=== PATIENT | female | born 1970 | race Caucasian/White ===

== ENCOUNTER → 2017-09-24 | Outpatient (CLI) | payer OTHER, MEDICARE ==
[~2017-09-24] MED LIST: FLEXERIL PO; LEVOTHYROXIN0.088 MG PO; LISINOPRIL5 MG PO; NORCO 5-325 TA1 EACH PO
== END ==
LOC: M.RAD 08:09
DX: Z12.31 Encounter for screening mammogram for malignant neoplasm of breast (principal)

== ENCOUNTER → 2018-04-06 | Outpatient (CLI) | payer OTHER, MEDICARE | LOC: M.ULTRA 15:30 | DX: E04.2 Nontoxic multinodular goiter (principal); N92.6 Irregular menstruation, unspecified ==

== ENCOUNTER → 2018-04-08 | Outpatient (CLI) | payer OTHER, MEDICARE | LOC: M.ULTRA 13:33 | DX: N83.202 Unspecified ovarian cyst, left side (principal); D25.9 Leiomyoma of uterus, unspecified; E04.2 Nontoxic multinodular goiter ==